=== PATIENT | female | born 1985 | race African-American/Black ===

== ENCOUNTER 2017-06-10 05:11 | Inpatient (IN) | payer BC ==
[2017-06-10] MEDS ORDERED: Citric Acid/Sodium Citrate Solution 30 ML Cup PO ONE (06:00)
[2017-06-10] MEDS ORDERED: Sodium Chloride 0.9% 10 ML Syringe FLUSH PRN (06:00)
[2017-06-10] MEDS ORDERED: Metoclopramide 10 MG/2 ML SDV IVPUSH ONE (06:00)
[2017-06-10] MEDS: Lactated Ringers 1,000 ML ONE (06:11)
[2017-06-10] MEDS: Lactated Ringers 1,000 ML IV SCH ×2 (06:13→06:59)
[2017-06-10] MEDS ORDERED: Morphine PF 1 MG/ML Amp ONE (06:54)
[2017-06-10] MEDS ORDERED: Bupivacaine 0.5% 30 ML SDV ONE (06:55)
[2017-06-10] MEDS ORDERED: Ketorolac 30 MG/ML SDV ONE (07:19)
[2017-06-10] MEDS ORDERED: Oxytocin 10 Units/1 ML SDV ONE (07:19)
[2017-06-10] MEDS ORDERED: Dexamethasone 4 MG/ML SDV ONE (07:19)
[2017-06-10] MEDS ORDERED: Lactated Ringers 2,000 ML ONE (07:19)
[2017-06-10] MEDS ORDERED: ceFAZolin 1 GM Vial ONE (07:19)
[2017-06-10] MEDS ORDERED: Ondansetron 4 MG/2 ML SDV ONE (07:19)
--- NOTE | 2017-06-10 07:28 | PCM.PREANE ---
Preanesthetic Assessment - Anesthesia/Transfusion/Family Hx Anesthesia History: Prior Anesthesia Without Reaction Family History of Anesthesia Reaction: No Transfusion History: Prior Transfusion Without Reaction Intubation History: Unknown - Review of Systems General: No Symptoms Pulmonary: No Symptoms, Other (History of TB. No current symptoms. ) Cardiovascular: No Symptoms Gastrointestinal: Other (Heart burn with ) Other: Reports: None - Physical Assessment NPO Status Date: 06/09/17 NPO Status Time: 21:30 Pulse: 86 O2 Sat by Pulse Oximetry: 100 Respiratory Rate: 15 Blood Pressure: 109/86 Temperature: 36.3 C Vital Signs: Last Vital Signs Temp 36.3 C 06/10/17 05:35 Pulse 86 06/10/17 05:35 Resp 15 06/10/17 05:35 BP 109/86 06/10/17 05:35 Pulse Ox 100 06/10/17 05:35 Height: 1.6 m Weight: 75.296 kg ASA Class: 2 Mental Status: Alert & Oriented x3 Airway Class: Mallampati = 1 Dentition: Reports: Normal Dentition Thyro-Mental Finger Breadths: 3 Mouth Opening Finger Breadths: 3 ROM/Head Extension: Full Lungs: Clear to Auscultation, Normal Respiratory Effort Cardiovascular: Regular Rate, Regular Rhythm - Lab Values: Laboratory Last Values WBC 7.23 K/mm3 (3.98-10.04) 06/10/17 05:30 RBC 4.69 M/mm3 (3.98-5.22) 06/10/17 05:30 Hgb 9.7 gm/L (11.2-15.7) L 06/10/17 05:30 Hct 31.3 % (34.1-44.9) L 06/10/17 05:30 MCV 66.7 fl (79.4-94.8) L 06/10/17 05:30 MCH 20.7 pg (25.6-32.2) L 06/10/17 05:30 MCHC 31.0 g/dl (32.2-35.5) L 06/10/17 05:30 RDW Std Deviation 43.1 fL (36.4-46.3) 06/10/17 05:30 Plt Count 241 K/mm3 (182-369) 06/10/17 05:30 MPV 9.8 fl (9.4-12.3) 06/10/17 05:30 Neut % (Auto) 65.9 % (34.0-71.1) 06/10/17 05:30 Lymph % (Auto) 23.9 % (19.3-51.7) 06/10/17 05:30 [place] % (Auto) 9.0 % (4.7-12.5) 06/10/17 05:30 Eos % (Auto) 0.7 (0.7-5.8) 06/10/17 05:30 Baso % (Auto) 0.1 % (0.1-1.2) 06/10/17 05:30 Neut # (Auto) 4.76 K/mm3 (1.56-6.13) 06/10/17 05:30 Lymph # (Auto) 1.73 K/mm3 (1.18-3.74) 06/10/17 05:30 [place] # (Auto) 0.65 K/mm3 (0.24-0.36) H 06/10/17 05:30 Eos # (Auto) 0.05 K/mm3 (0.04-0.36) 06/10/17 05:30 Baso # (Auto) 0.01 K/mm3 (0.01-0.08) 06/10/17 05:30 Manual Slide Review Abnormal smear 06/10/17 05:30 Blood Type B NEGATIVE 06/10/17 05:30 Gel Antibody Screen Positive 06/10/17 05:30 - Allergies Allergies/Adverse Reactions: Allergies Allergy/AdvReac Type Severity Reaction Status Date / Time No Known Allergies Allergy Verified 06/10/17 00:23 - Blood Blood Available: Yes Product(s) Available: PRBC - Acknowledgements Anesthesia Type Planned: Spinal Pt an Appropriate Candidate for the Planned Anesthesia: Yes Alternatives and Risks of Anesthesia Discussed w Pt/Guardian: Yes Pt/Guardian Understands and Agrees with Anesthesia Plan: Yes PreAnesthesia Questionnaire Respiratory History: Reports: TB RECHARGER History: Reports: , Other (See Below) Other OB/BYN History: Previous x2, History of multiple gestation, history of demise full term. Hematologic History: Reports: Anemia - Infectious Disease History Infectious Disease History: Reports: TB - Past Surgical History Female Surgical History: Reports: Section - SUBSTANCE USE Smoking Status *Q: Never Smoker Second Hand Smoke Exposure: No Recreational Drug Use History: No - HOME MEDS Home Medications: Home Meds PNV95/Ferrous Fumarate/FA [ Vitamin Tablet] 1 each PO DAILY 06/10/17 [ History] - CURRENT (IN HOUSE) MEDS Current Meds: Current Medications Cefazolin Sodium/Dextrose 2 gm (/ Premix) 50 mls @ 100 mls/hr IV ONETIME ONE Stop: 06/10/17 07:59 Lactated Ringer's (Ringers, Lactated) 1,000 mls @ 125 mls/hr IV ASDIRECTED [facility] Last Admin: 06/10/17 06:59 Dose: 125 mls/hr Oxytocin/Lactated Ringer's (Pitocin In Lr 10 Units/1,000 Ml) 10 unit in 1,000 mls @ 100 mls/hr IV ASDIRECTED [facility] Sodium Chloride (Saline Flush) 10 ml FLUSH ASDIRECTED PRN PRN Reason: Keep Vein Open Discontinued Medications Bupivacaine HCl (Marcaine 0.5%) Confirm Administered Dose 30 ml .ROUTE .STK-MED ONE Stop: 06/10/17 06:56 Cefazolin Sodium (Ancef) Confirm Administered Dose 2 gm .ROUTE .STK-MED ONE Stop: 06/10/17 07:20 Citric Acid/Sodium Citrate (Bicitra Solution) 30 ml PO ONETIME ONE Stop: 06/10/17 06:01 Last Admin: 06/10/17 06:55 Dose: 30 ml Dexamethasone (Dexamethasone) Confirm Administered Dose 4 mg .ROUTE .STK-MED ONE Stop: 06/10/17 07:20 Lactated Ringer's (Ringers, Lactated) Confirm Administered Dose 1,000 mls @ as directed .ROUTE .STK-MED ONE Stop: 06/10/17 05:31 Lactated Ringer's (Ringers, Lactated) Confirm Administered Dose 2,000 mls @ as directed .ROUTE .STK-MED ONE Stop: 06/10/17 07:20 Ketorolac Tromethamine (Toradol) Confirm Administered Dose 30 mg .ROUTE .STK- MED ONE Stop: 06/10/17 07:20 Metoclopramide HCl (Reglan) 10 mg IVPUSH ONETIME ONE Stop: 06/10/17 06:01 Last Admin: 06/10/17 06:56 Dose: 10 mg Morphine Sulfate (Duramorph Pf) Confirm Administered Dose 1 mg .ROUTE .STK-MED ONE Stop: 06/10/17 06:55 Ondansetron HCl (Zofran) Confirm Administered Dose 4 mg .ROUTE .STK-MED ONE Stop: 06/10/17 07:20 Oxytocin (Pitocin) Confirm Administered Dose 10 unit .ROUTE .STK-MED ONE Stop: 06/10/17 07:20
[2017-06-10] MEDS ORDERED: ceFAZolin 2 GM in Premix Bag 1 BAG IV ONE (07:30)
[2017-06-10] MEDS ORDERED: Oxytocin/Lactated Ringers 10 UNIT/1,000 ML BAG IV SCH (08:00)
[2017-06-10] MEDS ORDERED: ePHEDrine 50 MG/ML SDV IVPUSH PRN ×2 (08:28→09:52)
[2017-06-10] MEDS ORDERED: Ondansetron 4 MG/2 ML SDV IVPUSH PRN (08:28)
[2017-06-10] MEDS ORDERED: Meperidine PF 50 MG/ML Syringe IVPUSH PRN (08:28)
[2017-06-10] MEDS ORDERED: diphenhydrAMINE 50 MG/ML SDV IVPUSH PRN ×2 (08:28→09:52)
[2017-06-10] MEDS ORDERED: Phenylephrine/Normal Saline 100 MCG/ML 10 ML Syringe ONE (08:37)
--- NOTE | 2017-06-10 08:56 | PCM.POSTAN ---
POST ANESTHESIA ASSESSMENT - MENTAL STATUS Mental Status: Alert, Oriented - VITAL SIGNS Pulse Rate: 80 SaO2: 100 Resp Rate: 20 Blood Pressure: 95/65 Temperature: 36.3 C - RESPIRATORY Respiratory Status: Respiratory Rate WNL, Airway Patent, O2 Saturation Stable - CARDIOVASCULAR CV Status: Pulse Rate WNL, Blood Pressure Stable - GASTROINTESTINAL GI Status: No Symptoms - PAIN Pain Score: 0 - POST OP HYDRATION Hydration Status: Adequate & Stable
--- NOTE | 2017-06-10 08:56 | PCM.OPNOTE ---
- General Post-Op/Procedure Note Date of Surgery/Procedure: 06/10/17 Operative Procedure(s): repeat Findings: Viable female, weight 8#11oz, APGARS 6/8, normal uterus tubes and ovaries. Pre Op Diagnosis: prior , desires repeat Post-Op Diagnosis: Same Anesthesia Technique: Spinal Primary Surgeon: Migdalia Gama Anesthesia Provider: Ramonita Sr 3D Animator: Lucy Cardenas Reason 3D Animator Was Necessary: patient safety, retraction, prior sections Pathology: none Fluid Replacement, Intraop: 2,500 Output, Urine Amount: 275 EBL in mLs: 600 Complications: None Condition: Good Free Text/Narrative:: The patient was taken to the operating room where epidural anesthesia was dosed to surgical levels without difficulty. The patient was prepped and draped in the usual sterile fashion in the dorsal supine position with a leftward tilt. A Pfannenstiel skin incision was made with the scalpel and carried through to the underlying layer of fascia. The fascia was incised in the midline and extended laterally using José scissors. Casper clamps were used to elevate the superior aspect of the fascial incision, which was elevated, and the underlying rectus muscles were dissected off bluntly and using José scissors. Attention was then turned to the inferior aspect of the fascial incision, which in similar fashion was grasped with Casper clamps, elevated, and the underlying rectus muscles were dissected off bluntly and using the josé. The rectus muscles were dissected in the midline. The peritoneum was entered bluntly; this incision was extended superiorly and inferiorly with good visualization of the bladder. The bladder blade was inserted. The vesicouterine peritoneum was identified and entered sharply using Metzenbaum scissors. This incision was extended laterally and the bladder flap was created digitally. The bladder blade was reinserted. The lower uterine segment was incised in a transverse fashion using the scalpel and with digital traction. Clear fluid was noted. The infant was subsequently delivered by flexing the head to the incision. Body and shoulders followed without difficulty. The cord was clamped and cut. The was subsequently handed to the awaiting forward air controller/air officer whose presence had been requested.. The placenta was delivered spontaneously intact with a three-vessel cord noted. The uterus was exteriorized and cleared of all clots and debris. The uterine incision was repaired in 2 layers using 0 monocryl. Hemostasis was visualized. Hemostasis was visualized bilaterally. The uterus was returned to the abdomen. The uterine incision was reexamined and it was noted to be hemostatic. The pelvis was copiously irrigated. The fascia was closed with 1 PDS suture, and the skin was closed with 3-0 monocryl. Sponge, lap, and instrument counts were correct x2. The patient was stable at the completion of the procedure and was subsequently transferred to the recovery room in stable condition.
[2017-06-10] MEDS ORDERED: Lanolin 100% Cream 7 GM Tube TOP PRN (09:52)
[2017-06-10] MEDS ORDERED: Naloxone 0.4 MG/ML SDV IVPUSH PRN (09:52)
[2017-06-10] MEDS ORDERED: Docusate Sodium 100 MG Cap PO PRN (09:52)
[2017-06-10] MEDS ORDERED: Dextrose 5%-Lactated Ringers 1,000 ML IV SCH (09:52)
[2017-06-10] MEDS: Ibuprofen 600 MG Tab PO PRN (22:00)
[2017-06-11] MEDS: Acetaminophen/oxyCODONE 325-5 MG Tab PO PRN ×3 (02:00→19:58)
[2017-06-11] MEDS: Lactated Ringers 1,000 ML ONE (02:23)
[2017-06-11] MEDS: Ibuprofen 600 MG Tab PO PRN (08:50)
--- NOTE | 2017-06-11 12:34 | PCM48HPAN ---
Post Anesthesia Note - EVALUATION WITHIN 48HRS OF ANESTHETIC Vital Signs in Normal Range: Yes Patient Participated in Evaluation: Yes Respiratory Function Stable: Yes Airway Patent: Yes Cardiovascular Function Stable: Yes Hydration Status Stable: Yes Pain Control Satisfactory: Yes Nausea and Vomiting Control Satisfactory: Yes Mental Status Recovered: Yes - COMMENTS/OBSERVATIONS Free Text/Narrative:: Denies any headache, back pain, or residual numbness or tingling to LE. Pt doing well resting in bed.
[2017-06-12] MEDS: Ibuprofen 600 MG Tab PO PRN ×3 (03:08→16:27)
[2017-06-12] MEDS: Acetaminophen/oxyCODONE 325-5 MG Tab PO PRN ×2 (03:45→13:43)
--- NOTE | 2017-06-12 13:04 | PCM.DCSUM1 ---
Discharge Summary - Discharge Data Discharge Date: 06/12/17 Discharge Disposition: Home, Self-Care 01 Condition: Good - Patient Summary/Data Operative Procedure(s) Performed: repeat - Patient Instructions Diet: Usual Diet as Tolerated Activity: No Strenuous Activities Driving: May Drive Today Showering/Bathing: May Shower Wound/Incision Care: Keep Operative Site/Wound Site Clean and Dry Notify Provider of: Fever, Increased Pain, Swelling and Redness, Drainage, Nausea and/or Vomiting - Discharge Plan Home Medications: Home Meds PNV95/Ferrous Fumarate/FA [ Vitamin Tablet] 1 each PO DAILY 06/10/17 [ History] Referrals: Migdalia Gama MD [Physician] - (4 weeks) - Discharge Summary/Plan Comment DC Time >30 min.: No - General Info Date of Service: 06/12/17 Functional Status: Reports: Pain Controlled - Review of Systems General: Reports: No Symptoms HEENT: Reports: No Symptoms Pulmonary: Reports: No Symptoms Cardiovascular: Reports: No Symptoms Gastrointestinal: Reports: No Symptoms Genitourinary: Reports: No Symptoms Musculoskeletal: Reports: No Symptoms Skin: Reports: No Symptoms Neurological: Reports: No Symptoms Psychiatric: Reports: No Symptoms - Patient Data Vitals - Most Recent: Last Vital Signs Temp 36.3 C 06/12/17 03:41 Pulse 64 06/12/17 03:41 Resp 16 06/12/17 03:41 BP 98/66 06/12/17 03:41 Pulse Ox 98 06/12/17 03:41 Weight - Most Recent: 75.296 kg I&O - Last 24 hours: Intake & Output 06/11/17 06/12/17 06/12/17 22:59 06:59 14:59 Intake Total 180 Balance 180 Med Orders - Current: Current Medications Diphenhydramine HCl (Benadryl) 25 mg IVPUSH Q6H PRN PRN Reason: Itching or Nausea Docusate Sodium (Colace) 100 mg PO Q12H PRN PRN Reason: Constipation Emollient Ointment (Lansinoh Hpa) 0 gm TOP ASDIRECTED PRN PRN Reason: Sore Nipples Ephedrine Sulfate (Ephedrine Sulfate) 5 mg IVPUSH SEECOMMENT PRN PRN Reason: Other Ibuprofen (Motrin) 600 mg PO Q6H PRN PRN Reason: mild pain or fever Last Admin: 06/12/17 09:04 Dose: 600 mg Naloxone HCl (Narcan) 0.1 mg IVPUSH SEECOMMENT PRN PRN Reason: Respiratory Depression Oxycodone/Acetaminophen (Percocet 325-5 Mg) 1 tab PO Q6H PRN PRN Reason: Pain (moderate 4-6) Last Admin: 06/12/17 03:45 Dose: 1 tab Discontinued Medications Bupivacaine HCl (Marcaine 0.5%) Confirm Administered Dose 30 ml .ROUTE .STK-MED ONE Stop: 06/10/17 06:56 Last Admin: 06/10/17 08:10 Dose: 20 ml Cefazolin Sodium (Ancef) Confirm Administered Dose 2 gm .ROUTE .K-MED ONE Stop: 06/10/17 07:20 Citric Acid/Sodium Citrate (Bicitra Solution) 30 ml PO ONETIME ONE Stop: 06/10/17 06:01 Last Admin: 06/10/17 06:55 Dose: 30 ml Dexamethasone (Dexamethasone) Confirm Administered Dose 4 mg .ROUTE .STK-MED ONE Stop: 06/10/17 07:20 Diphenhydramine HCl (Benadryl) 25 mg IVPUSH Q6H PRN PRN Reason: Pruritis Ephedrine Sulfate (Ephedrine Sulfate) 5 mg IVPUSH ASDIRECTED PRN PRN Reason: Hypotension Cefazolin Sodium/Dextrose 2 gm (/ Premix) 50 mls @ 100 mls/hr IV ONETIME ONE Stop: 06/10/17 07:59 Last Admin: 06/11/17 02:23 Dose: Not Given Lactated Ringer's (Ringers, Lactated) 1,000 mls @ 125 mls/hr IV ASDIRECTED [facility] Last Admin: 06/10/17 06:59 Dose: 125 mls/hr Oxytocin/Lactated Ringer's (Pitocin In Lr 10 Units/1,000 Ml) 10 unit in 1,000 mls @ 100 mls/hr IV ASDIRECTED [facility] Lactated Ringer's (Ringers, Lactated) Confirm Administered Dose 1,000 mls @ as directed .ROUTE .STK-MED ONE Stop: 06/10/17 05:31 Last Admin: 06/11/17 02:23 Dose: Not Given Lactated Ringer's (Ringers, Lactated) Confirm Administered Dose 2,000 mls @ as directed .ROUTE .STK-MED ONE Stop: 06/10/17 07:20 Dextrose/Lactated Ringer's (Dextrose 5%-Lactated Ringers) 1,000 mls @ 125 mls/ hr IV ASDIRECTED [facility] Stop: 06/10/17 17:51 Last Admin: 06/11/17 02:22 Dose: Not Given Ketorolac Tromethamine (Toradol) Confirm Administered Dose 30 mg .ROUTE .STK- MED ONE Stop: 06/10/17 07:20 Meperidine HCl (Demerol) 12.5 mg IVPUSH ONETIME PRN PRN Reason: Shivering Metoclopramide HCl (Reglan) 10 mg IVPUSH ONETIME ONE Stop: 06/10/17 06:01 Last Admin: 06/10/17 06:56 Dose: 10 mg Morphine Sulfate (Duramorph Pf) Confirm Administered Dose 1 mg .ROUTE .STK-MED ONE Stop: 06/10/17 06:55 Ondansetron HCl (Zofran) Confirm Administered Dose 4 mg .ROUTE .STK-MED ONE Stop: 06/10/17 07:20 Ondansetron HCl (Zofran) 4 mg IVPUSH ONETIME PRN PRN Reason: Nausea/Vomiting Oxytocin (Pitocin) Confirm Administered Dose 10 unit .ROUTE .STK-MED ONE Stop: 06/10/17 07:20 Phenylephrine HCl (Phenylephrine In Ns 100 Mcg/Ml) Confirm Administered Dose 1 mg .ROUTE .STK-MED ONE Stop: 06/10/17 08:38 Sodium Chloride (Saline Flush) 10 ml FLUSH ASDIRECTED PRN PRN Reason: Keep Vein Open - Exam General: Reports: Alert, Oriented HEENT: Reports: Pupils Equal, Pupils Reactive, EOMI, Mucous Membr. Moist/[place] Neck: Reports: Supple Lungs: Reports: Clear to Auscultation, Normal Respiratory Effort Cardiovascular: Reports: Regular Rate, Regular Rhythm GI/Abdominal Exam: Normal Bowel Sounds, Soft, Non-Tender, No Organomegaly, No Distention, No Abnormal Bruit, No Mass, Pelvis Stable Rectal (Female) Exam: Normal Exam, Normal Rectal Tone Back Exam: Reports: Normal Inspection, Full Range of Motion Extremities: Normal Inspection, Normal Range of Motion, Non-Tender, No Pedal Edema, Normal Capillary Refill Skin: Reports: Warm, Dry, Intact Wound/Incisions: Reports: Healing Well Neurological: Reports: No New Focal Deficit Psy/Mental Status: Reports: Alert, Normal Affect, Normal Mood *Q Meaningful Use (DIS) - VTE *Q VTE Criteria *Q: - Stroke *Q Stroke Criteria *Q: - AMI *Q AMI Criteria *Q:
[2017-06-12 17:40] VITALS: BP 114/88
== END 2017-06-12 17:45 | disposition home or self-care (01) | DRG 540 ==
LOC: JD.OB 05:11
PROVIDERS: ADMIT Obstetrics & Gynecology; ATTEND Obstetrics & Gynecology
PROC: 10D00Z1 Extraction of Products of Conception, Low, Open Approach (ICD-10-PCS; principal; 2017-06-10)
DX: O34.211 Maternal care for low transverse scar from previous cesarean delivery (principal); N85.8 Other specified noninflammatory disorders of uterus; Z3A.39 39 weeks gestation of pregnancy; Z37.0 Single live birth
CPT/HCPCS: 01961; 36415; 85025; 85461; 86850; 86870; 86900; 86901; 94762; A9270-GY; J0690; J1100; J1885; J2274; J2405; J2590; J2765; J2790; J7120